=== PATIENT | male | born 2000 | race Caucasian/White ===

== ENCOUNTER 2021-01-23 02:41 | Observation (INO) | payer SELFPAY ==
[2021-01-23] VITALS (11 sets, daily range): BP systolic 114–128; BP diastolic 66–80; PULSE 57–91; TEMP 97.8–98.8
[~2021-01-23] VITALS: Ht 188 cm; Wt 81.8 kg
[2021-01-23] MEDS ORDERED: ZYRTEC 10MG10 MG PO (03:13)
[2021-01-23 03:56] LABS: BASO % 0.2 % (0.0-2.0); EOS # 0.1 (0.0-0.7); EOS % 0.7 % (0-4.0); GRAN # 13.9 (1.4-6.5); GRAN % 84.9 % (42.2-75.2); HEMATOCRIT 49.9 % (36.0-47.0); HEMOGLOBIN 17.3 g/dl (12.5-16.1); LYMPH # 1.2 (1.2-3.4); LYMPH % 7.1 % (20.0-51.0); MEAN CELL VOLUME 85 fl (80.0-95.0); MEAN CORPUSCULAR HEMOGLOBIN 30 pg (26.0-32.0); MEAN CORPUSCULAR HGB CONC 35 g/dl (33.0-37.0); MEAN PLATELET VOLUME 9.1 fl (7.4-10.4); MONO # 1.1 (0.1-0.6); MONO % 6.8 % (1.7-9.3); PLATELET COUNT 211 K/mm3 (130-400); RED BLOOD COUNT 5.86 M/mm3 (4.20-5.60); REDCELL DISTRIBUTION WIDTH-CV 12.3 % (11.5-14.5)
[2021-01-23 04:07] LABS: ALBUMIN 5.5 gm/dL (3.5-5.0); BILIRUBIN,TOTAL 1.3 mg/dL (0.0-1.0); CALCIUM 10.6 mg/dL (8.4-10.2); CREATININE, serum 0.99 (0.66-1.25); POTASSIUM 4.3 mmol/L (3.4-5.0); TOTAL PROTEIN 9.7 gm/dL (6.4-8.2)
[2021-01-23 06:38] LABS: COLLECTION METHOD CLEAN CATCH
[2021-01-23 06:43] LABS: PH 6 (5-8); SQUAMOUS EPITHELIAL None Seen /hpf; URINE APPEARANCE Clear; URINE BACTERIA None Seen /hpf; URINE BILIRUBIN Negative (NEGATIVE); URINE BLOOD Negative (NEGATIVE); URINE COLOR Straw; URINE GLUCOSE Negative (NEGATIVE); URINE KETONE Negative (NEGATIVE); URINE LEUKOCYTE ESTERASE Negative (NEGATIVE); URINE NITRATE Negative (NEGATIVE); URINE PROTEIN(semi-quant) Negative (NEGATIVE); URINE RBC 0-2 /hpf; URINE UROBILINOGEN Negative (NEGATIVE)
--- NOTE | 2021-01-23 09:20 | NUR ---
Pt arrived to medical unit room 359 at this time from ED. Oriented pt and mom to room. Admission assessment and med rec completed. Pt reports pain to [facility], contacted for orders for pain meds, morphine given per orders. LR started at 125 ml/hr per orders. Consent signed and NPO for planned lap appy at 1400. Denies other needs at this time. Continuing to monitor.
[2021-01-23] MEDS ORDERED: MEN'S ONE DAIL1 EACH PO (12:10)
--- NOTE | 2021-01-23 13:49 | NUR ---
Pt off unit for appendectomy at this time.
--- NOTE | 2021-01-23 15:45 | NUR ---
Pt back in room following lap appy. Incisions to abdomen x3, CDI, open to air. Post op vitals started. Vitals stable at this time. Reports 8/10 pain to LLQ, morphine given per orders. Pt brought a cup of ice water and PO intake encouraged. Continuing to monitor.
--- NOTE | 2021-01-23 18:31 | NUR ---
Vitals remain stable. Pt tolerating PO intake and able to eat most of dinner w/o issue. IV fluids stopped. Pt up to restroom x3 since returning to floor this afternoon. IV morphine given per orders x2 for pain, PO tramadol administered as well. Report given to shift mechanic RN.
--- NOTE | 2021-01-23 23:37 | NUR ---
Pt is resting fine. Family member was at the bedside forcing the pt to call for pain meds even if the pt stated he is not having pain. Mom was trying to stay over night then threw a fit when i told her she can't stayed over night per policy. She finaly agree to leave and pt has been resting fine.
[2021-01-24 05:01] VITALS: BP 127/68; PULSE 59; TEMP 98
--- NOTE | 2021-01-24 06:13 | NUR ---
PT HAS BEEN SLEEPING ALL NIGHT. PAIN RATED 0/10.
[2021-01-24 08:34] VITALS: BP 119/59; PULSE 70; TEMP 98
--- NOTE | 2021-01-24 09:16 | NUR ---
YUAN met with the patient and his mother, Opal (ph#[phone]), to discuss discharge plan. The patient lives in [place] with his father, Hurt, and brother. He reports independence with ADLs and does not have any DME. He states that his father has a cane and walker available. The patient's PCP is Dr. Alice Cox and he receives his medications from [facility]. The patient and his mother confirm that he is self pay. Financial Counseling has been consulted. The patient plans to return home with his family upon discharge. No additional needs at this time. *Discharge plan: home with family*
[2021-01-24] MEDS ORDERED: ULTRAM 50MG TAB50 MG PO (09:49)
--- NOTE | 2021-01-24 11:13 | NUR ---
DISCHARGE INSTRUCTIONS PROVIDED TO PATIENT. EDUCATION COMPLETED ON MEDICATIONS AND INCISION SITE CARE. PT STATES HE UNDERSTANDS AND HAS NO QUESTIONS REGARDING AT HOME CARE. IV REMOVED, TIP INTACT. CLIENT STATES MODERATE PAIN TO INCISIONS BUT DECLINES MEDICATION AT THIS TIME.
--- NOTE | 2021-01-24 11:20 | NUR ---
Pt escorted out at this time accompanied by mom.
--- NOTE | 2021-01-24 11:51 | NUR ---
First visit from the c architect. No needs right now.
== END 2021-01-24 11:21 | disposition home or self-care (01) ==
LOC: COL.ER 02:41 → MEDICAL 05:20
PROVIDERS: Personal Emergency Response Attendant; ADMIT Surgery
DX: K35.80 Unspecified acute appendicitis (principal)
CPT/HCPCS: C9113; G0378; J0690; J0694; J1100; J2270; J2405; J2704; J3010; J7030; J7120; Q9967